=== PATIENT | male | born 1950 | race Caucasian/White ===

== ENCOUNTER 2018-07-17 10:51 | Outpatient (CLI) | payer MEDICARE ==
--- NOTE | 2018-07-17 11:05 | RAD ---
F2 views chest: 07/17/2018 COMPARISON: 10/18/2002 HISTORY: Cough, rheumatoid arthritis FINDINGS: No pneumothorax or pleural fluid. No focal consolidation or alveolar edema. Stable degenera tive changes of the midthoracic spine. Stable mild increased interstitial density and pulmonary hyper inflation. IMPRESSION: Stable appearance of the chest-no acute findings.
== END 2018-07-17 10:52 | disposition home or self-care (01) ==
LOC: BICRAD 10:51
PROVIDERS: ATTEND Internal Medicine Rheumatology
DX: R05 Cough (principal)
CPT/HCPCS: 71046